=== PATIENT | female | born 1980 | race Two or more races ===

== ENCOUNTER 2023-03-29 15:22 | Emergency (ER) | payer OTHER, SELFPAY ==
[2023-03-29 15:27] VITALS: BP 152/84
--- NOTE | 2023-03-29 16:03 | ED.GENMED ---
History of Present Illness
General
Chief Complaint: Blood Pressure Problem
Source: patient
Exam Limitations: none
Time Seen by Provider: 03/29/23 15:57
Travel History
Have you had any contact with someone who has COVID-19?: No
Do you have any symptoms of coronavirus? Fever > 100 degrees, chills, cough, shortness of breath, sore throat, loss of taste or smell, muscle aches, or headache?: No
History of Present Illness
History of Present Illness:
See MDM
Past History
Past History
ED Past Medical History: None
ED Past Surgical History: None
Social History
Tobacco: Non-smoker
Alcohol: None
Phy Exam
Physical Exam
Physical Exam:
See MDM
Course
Orders/Labs/Results
Orders:
Orders
03/29/23 15:35
EKG [Electrocardiogram (*1)] Urgent
Reason for Study: Chest Pain
EKG- Treatment ONCE
03/29/23 15:41
Complete Blood Count/With Diff Urgent
Comprehensive Metabolic Panel Urgent
LDH Urgent
Comment: ADD ON
Magnesium Urgent
Comment: ADD ON
Uric Acid Urgent
Comment: ADD ON
Urinalysis Reflex To Culture Urgent
Date Specimen was Collected: 03/29/23
Time Specimen was Collected: 15:35
Urine Microscopic Reflex Cult Urgent
03/29/23 16:02
Add On- LAB Urgent
Tests Added?: Magnesium, LDH, Uric Acid
03/29/23 17:26
Ibuprofen [Motrin] 400 mg PO NOW STA
Abnormal Lab Results
03/29/23
15:41
Hct 36.6 L %
(37.0-47.0)
Uric Acid 6.4 H mg/dl
(2.5-6.2)
Total Protein 6.2 L g/dl
(6.3-8.2)
Albumin 3.3 L g/dl
(3.5-5.0)
Ur Occult Blood Reflex 2+ A
(Negative)
Urine Bacteria (Reflex) Few A
(Negative)
03/29/23 15:41
03/29/23 15:41
Vital Signs
Initial and Last Documented VS:
Initial Vital Signs
Temp Pulse Resp BP Pulse Ox
97.9 F 71 17 152/84 99
03/29/23 15:27 03/29/23 15:27 03/29/23 15:27 03/29/23 15:27 03/29/23 15:27
Last Documented Vital Signs
Temp Pulse Resp BP Pulse Ox
97.9 F 57 28 124/78 100
03/29/23 15:27 03/29/23 17:00 03/29/23 17:00 03/29/23 17:00 03/29/23 17:00
MDM/Problems Addressed
Differential Diagnosis Includes:
HPI and MDM Narrative:
42-year-old female presenting for evaluation of elevated blood pressure and blood work. Patient is at 5 days from uncomplicated vaginal delivery at home with analyst business analysis. Due to the uptrending blood pressures, she was sent in for
blood work. Patient denies leg swelling, weakness or fatigue. She denies pregestational hypertension.
On exam, she is well-appearing and nontoxic. No pitting edema. Patient sitting in bed comfortably
Physical exam
General: Well appearing and non-toxic
HEENT: protecting airway
Neck: appears supple
CV: No evidence of cyanosis
Resp: No accessory muscle use
Abd: Non-distended
Extremities: No deformities. No leg edema
Neuro: alert
Psych: Normal affect
Skin: Intact
Problems Addressed including Acute and Chronic Conditions affecting care:
1. hypertension
Acuity: acute
Prognosis: stable
Details: Given the elevated blood pressure, will workup for preeclampsia
Updates
Blood work without no clinical significance. No evidence of preeclampsia on blood work. Blood pressure resolved on its own without intervention. On my reassessment, patient states her headache resolved without intervention as well. Case
discussed with OB in regards to the elevated blood pressure for the past few days regardless of normal blood work. It was suggested to have her follow-up with her [employer] director on Friday for blood pressure check rather than prophylactically start
Differential Diagnosis (but not limited to): hypertension, preeclampsia
Testing considered:
Drug therapy (if applicable): OTC meds, please see d/c instruction regarding Rx drugs
Amount and/or Complexity of Data Reviewed
Clinical info obtained from: Patient
External data reviewed: N/A
Labs I independently reviewed (but not limited to): LFTs and platelets within normal limits
Radiology: N/A
Pulse Ox: not hypoxic
EKG independently reviewed: Sinus rhythm, normal axis, no STEMI
Stitchdown Thread Laster: N/A
Critical Care: N/A
Risk of Complication:
Social Determinants of health: Good social support
Discussed with other providers: N/A
Escalation of Care includes Admit/Obs: After being observed in the Emergency Department, pt stable for discharge.
Occasional wrong word or 'sound a like' substitutions may have occurred due to the inherent limitations of voice recognition software. Read the chart carefully and recognize, using context, where substitutions have occurred.
*Critical Care Note
Total Time (30-74mins, 75-104mins- exclusive of procedures): Not Applicable
ED Attending Note
-
Portions of this chart may have been created with voice recognition software.� Occasional wrong word or��sound alike� substitutions may have occurred due to the inherent limitations of voice recognition software.
Discharge Plan
Departure
Patient Disposition: Home (Routine Discharge)
Date of Disposition: 03/29/23
Time of Disposition: 17:35
Patient with high blood pressure during this ER visit?: Yes
Discharge Problem:
Essential hypertension-
Instructions: BLOOD PRESSURE
Referrals:
Christina Griffiths MD [Family Provider] -
Activity Restrictions/Additional Instructions:
As we discussed, there is no blood work abnormality to suggest preeclampsia. Your headache and blood pressure appear to have resolved on their own. The OB on-call recommended that you call your analyst business analysis for blood pressure check on Friday. Please
return for worsening symptoms.
Interventions
Interventions:
*Risk Screen - Suicide Last Done: 03/29/23 16:11
*General Assessment Last Done: 03/29/23 16:11
*Neglect/Abuse Screening Last Done: 03/29/23 16:11
ED- Fall Risk Assessment Last Done: 03/29/23 16:13
*ED COVID-19 Vaccine History Last Done: 03/29/23 16:11
ED- Cardiac Assessment Last Done: 03/29/23 16:13
ED- Neurological Assessment Last Done: 03/29/23 16:13
ED- Pulmonary Assessment Last Done: 03/29/23 16:13
[2023-03-29 16:04] VITALS: BP 139/79
[2023-03-29 16:05] LABS: % Basophils 0.4 % (0-2); % Eosinophils 2.8 % (0-6); % Immature Granulocytes 0.4 % (0-0.5); % Lymphocytes 27.2 % (20.5-51.1); % Monocytes 5.9 % (1.7-9.3); % Neutrophils 63.3 % (42.2-75.2); Absolute Eosinophils 0.2 10^3/uL (0-0.7); Absolute Lymphocytes 2.2 10^3/uL (1.2-3.4); Absolute Monocytes 0.5 10^3/uL (0.1-0.6); Hematocrit 36.6 % (37.0-47.0); Hemoglobin 12.6 g/dL (12.0-16.0); Mean Corp Hgb Conc. 34.4 g/dL (33.0-37.0); Mean Corpuscular Hgb 28.7 pg (27.0-31.0); Mean Corpuscular Volume 83.4 fL (81.0-99.0); Mean Platelet Volume 9.4 fL (7.4-10.4); Nucleated Red Blood Cells % 0 %; Platelet Count 292 10^3/uL (130-400); Red Blood Cell Count 4.39 10^6/uL (4.20-5.40); Urine Albumin Negative (Neg - Trace); Urine Bilirubin Negative (Negative); Urine Character Clear (Clear); Urine Color Yellow; Urine Glucose Negative (Negative); Urine Ketone Negative (Negative); Urine Leukocyte Negative (Negative); Urine Nitrite Negative (Negative); Urine Occult Blood 2+ (Negative); Urine Urobilinogen Negative (Neg - 1+); White Blood Cell Count 7.9 10^3/uL (4.8-10.8)
[2023-03-29 16:10] VITALS: BP 139/79
[2023-03-29 16:15] VITALS: BMI 30.1
[2023-03-29 16:18] LABS: ALT (SGPT) 20 U/L (0-35); AST (SGOT) 27 U/L (14-36); Albumin 3.3 g/dl (3.5-5.0); Alkaline Phosphatase 107 U/L (38-126); Blood Urea Nitrogen 12 mg/dl (7-17); Carbon Dioxide 23 mmol/L (22-30); Chloride 105 mmol/L (98-107); Estimated Creatinine Clearance 112 ml/min; Glucose 92 mg/dl (70-99); Potassium 4.1 mmol/L (3.5-5.1); Sodium 138 mmol/L (135-145); Total Bilirubin 0.4 mg/dl (0.2-1.3); Total Protein 6.2 g/dl (6.3-8.2); eGFR > 60.00
[2023-03-29 16:29] LABS: LDH 206 U/L (120-246); Uric Acid 6.4 mg/dl (2.5-6.2)
[2023-03-29 16:40] LABS: Urine Bacteria Few (Negative); Urine Red Blood Cell 0-2 /HPF (0-2); Urine Squamous Cell 0-2 /LPF (Few); Urine White Cell 0-2 /HPF (0-5)
[2023-03-29 17:00] VITALS: BP 124/78
[2023-03-29] MEDS: MOTRIN 400 MG PO (17:39)
[2023-03-29 17:51] VITALS: BP 124/78
== END 2023-03-29 17:52 | disposition home or self-care (01) ==
LOC: EMR 15:22
PROVIDERS: Emergency Medicine; EMERGENCY PHYSICIAN Student in an Organized Health Care Education/Training Program; FAMILY PHYSICIAN Family Medicine
DX: O99.893 Other specified diseases and conditions complicating puerperium (principal); O16.5 Unspecified maternal hypertension, complicating the puerperium; R51.9 Headache, unspecified
CPT/HCPCS: 99284; 80053; 81003; 81015; 83615; 83735; 84550; 85025; 93005